=== PATIENT | female | born 1960 | race Caucasian/White ===

== ENCOUNTER 2022-03-19 13:51 | Emergency (ER) | payer OTHER, MEDICARE, SELFPAY ==
[2022-03-19 14:15] VITALS: BP 154/75; BP 154/78; PULSE 54; PULSE 84; RESP 16; TEMP 36.7; O2SAT 97; O2SAT 99; BMI 28.3
--- NOTE | 2022-03-19 14:22 | PC.NURSE ---
Pt comes in via EMS from [facility] for no PO intake x 4 days per facility. Pt is A&Ox4, denies any pain, states she hasn't eaten or drank anything because she thinks she ingested a parasite. Pt also states her needs to stay away from her because he is trying to kill her. Pt appears to be paranoid and delusional at this time. Section 12 per [facility], sitter in place. Call leavitt within reach, awaiting MD newell at this time. Will continue to monitor.
--- NOTE | 2022-03-19 14:37 | ED.GENADULT ---
HPI - General Adult General Chief complaint: General Medical Stated complaint: FTT Time Seen by Provider: 03/19/22 14:26 Source: EMS and other (Dr. Omar Olivier ) Mode of arrival: EMS Limitations: other (Delusional) History of Present Illness HPI narrative: Patient comes to the emergency room via EMS from [facility]. I received a phone call from Dr. Omar Olivier, internal medicine. For the past 4 days, patient has been refusing to eat or drink anything. Patient does not have a healthcare proxy and does not have a Jameson order. Here in emergency room, patient is refusing to eat or drink anything. Patient states that 4 days ago she ingested a parasite . Patient states that her name is not Aysha Dow, states that her name is Balwinder Esparza and is refusing fluids, food, labs. Related Data Allergies Allergy/AdvReac Type Severity Reaction Status Date / Time No Known Allergies Allergy Verified 03/19/22 16:16 Review of Systems Review of Systems: Yes Unobtainable due to mental condition [facility] Past Medical History Medical History (Updated 03/19/22 @ 16:35 by Ashly Morillo MD) Bipolar disorder Diabetes Hyperlipidemia Hypothyroidism Social History Social History Advance Directives: No Advance Directives Information Provided: No Physical Exam ED Vital Signs: Vital Signs - 24 hr 03/19/22 14:15 Temperature 98.0 F Pulse Rate 84 Respiratory Rate 16 Blood Pressure 154/75 H Pulse Oximetry 97 BMI result Body Mass Index 28.3 Const Other: Appearance: Alert. Oriented X1. No acute distress. Eyes: Pupils equal, round and reactive to light. ENT: Pharynx normal. Neck: Normal inspection. Neck supple. No lymph nodes noted. No crepitus CVS: Normal heart rate and rhythm. Pulses normal. Normal S1 and S2 Respiratory: No respiratory distress. Breath sounds normal. No Wheezing. No rales Abdomen: Soft and nontender. No rigidity. No distention. Skin: Skin warm and dry. Normal skin color. Normal skin turgor. Extremities: No lower extremity edema. No Lacerations. No Rash Neuro: Oriented X 3. No motor deficit. No sensory deficit. Moving all extremities. No slurred speech. CN 2 through 12 grossly intact Psych: calm, bizarre affect, stating her name is Balwinder Esparza, concerned that she ate a parasite Course Course Course Narrative: At this time, patient refuses to eat/drink or ingest any medication. Patient is not allowing us to obtain labs, is refusing IV fluids. As mentioned above, patient does not have a [facility] order for a healthcare proxy. According to the staff at the facility, they are working on obtaining a James[place] order and healthcare proxy. In the meantime, we cannot force the patient to eat, drink, obtain labs. We will obtain add care team consult, likely patient will need also [facility] psych consult Physician of sedation started at 15:30 (late entry on the system) Discharge Plan Discharge Clinical Impression: Bipolar disorder, Delusional ideas Patient Disposition: Still a Patient
--- NOTE | 2022-03-19 15:44 | PC.NURSE ---
Called [facility], spoke to Umu regarding patient. Asked if pt has a HCP, she said she doesn't and they are attempting to get this organized and are waiting for a court date. made aware, call dagmar within reach. Will continue to monitor.
--- NOTE | 2022-03-19 18:30 | MHC.CARE ---
Late entry: Pt was transferred from [facility] inpt psychiatric unit for medical evaluation and clearance s/p not eating or drinking for 4 days. Pt is acutely delusional and disorganized and per the shore working supervisor at [facility] the facility petitioned the court for a civil commitment today. Pt's legal status is a Section 7 and pt will need to return to [facility] once she is medically cleared in the ED. This information was relayed to ED physician and nursing.
--- NOTE | 2022-03-19 18:38 | ECG_ITS ---
Test Reason : medical clearance Blood Pressure : / mmHG Vent. Rate : 064 BPM Atrial Rate : 064 BPM P-R Int : 164 ms QRS Dur : 146 ms QT Int : 464 ms P-R-T Axes : 040 -14 088 degrees QTc Int : 478 ms Normal sinus rhythm Possible Left atrial enlargement Left bundle branch block Abnormal ECG No previous ECGs available Referred By: Ashly Morillo Electronically Signed By:JONO RODRÍGUEZ MD
[2022-03-19 19:43] LABS: Basophils Absolute Auto 0.1 X10*3/uL (0.0-0.2); Basophils Percent Auto 0.7 % (0-2); Eosinophils Absolute Auto 0.2 X10*3/uL (0.0-0.4); Eosinophils Percent Auto 2.1 % (0-4); Hematocrit 48.2 % (37.0-47.0); Hemoglobin 16.7 g/dl (12.0-16.0); Imm Gran Abs Auto 0.03 X10*3/uL (0.00-0.03); Imm Gran Pct Auto 0.3 % (0.0-0.4); Lymphocytes Absolute Auto 2.2 X10*3/uL (1.2-4.9); Lymphocytes Percent Auto 22.4 % (20-40); MANUAL DIFF FLAG SCAN; Mean Corpuscular HGB Conc 34.6 g/dl (31.0-35.0); Mean Corpuscular Hemoglobin 30.9 pg (27.0-33.0); Mean Corpuscular Volume 89.1 fL (80.0-98.0); Monocytes Absolute Auto 0.8 X10*3/uL (0.1-1.2); Monocytes Percent Auto 8.2 % (2-11); Neutrophils Absolute Auto 6.5 x10*3/uL (2.0-8.3); Neutrophils Percent Auto 66.3 % (45-73); PLT ABN DIST 1; Red Blood Count 5.41 X10*6/uL (4.20-5.50); Red Cell Distribution Width 12.2 % (11.0-16.0); SCAN SMEAR FLAG 1
[2022-03-19 19:50] LABS: Ethanol < 10 mg/dL
[2022-03-19 19:56] LABS: Alanine Aminotransferase 33 U/L (0-31); Albumin Level 4.5 g/dL (3.5-5.0); Alkaline Phosphatase 100 U/L (39-117); Anion Gap 16 (12-20); Aspartate Amino Transferase 29 U/L (5-31); Bilirubin Direct 0.5 mg/dL (0.0-0.5); Bilirubin Total 1.4 mg/dL (0.0-1.0); Blood Urea Nitrogen 32 mg/dL (9-16); COVID-19 Test Negative (Negative); Calcium 9.9 mg/dL (8.4-10.2); Carbon Dioxide 23 mmol/L (22-29); Chloride 105 mmol/L (96-108); Creatinine Clr Calc Pharmacy 84.4; Estimated Glomerular Filt Rate > 60; Glucose Random 80 mg/dL (60-115); IDNOW Serial# 16C4AD1C; Potassium 4.2 mmol/L (3.3-5.1); Sodium 140 mmol/L (135-145); Total Protein 7.2 g/dL (6.5-8.0)
[2022-03-19 20:12] LABS: Platelet Count 150 X10*3/uL (160-400); White Blood Count 9.9 X10*3/uL (4.8-10.8)
[2022-03-19 20:13] LABS: SLIDE REVIEW VERIFIED
[2022-03-19 20:17] LABS: Appearance Urine HAZY; Color Urine YELLOW; Glucose Urine UA NEG (NEG); Leukocyte Esterase Urine 2+ (NEG); Nitrite Urine NEG (NEG); Specific Gravity - Urine 1.025 (1.005-1.025); UACC Culture Trigger YES; Urine Blood 3+ (NEG); Urine Ketones 40 MG/DL (NEG); Urine Protein 1+ MG/DL (NEG-TRACE)
[2022-03-19 20:26] LABS: Mucus Urine 1+ /LPF; Squamous Epithelial Cell Urine 2+ /LPF
[2022-03-19 20:27] LABS: Bacteria Urine 1+ /LPF
[2022-03-19 20:28] LABS: Amorphous Sediment Urine TRACE /LPF
[2022-03-19 20:32] LABS: Amphetamine Screen Urine Not Detected (Not Detect); Barbiturates, Urine Not Detected (Not Detect); Benzodiazepines Screen Urine Not Detected (Not Detect); Cannabinoid Screen Urine Not Detected (Not Detect); Cocaine Screen Urine Not Detected (Not Detect); Fentanyl, urine Not Detected (Not Detect); Opiate Screen Urine Not Detected (Not Detect); Phencyclidine Screen Urine Not Detected (Not Detect)
[2022-03-19] MEDS: 0.9 % Sodium Chloride 1,000 ML 999 ML IV ×2 (21:45→23:42)
--- NOTE | 2022-03-20 01:22 | PC.NURSE ---
Patient administered two bags of NS each 1000 ml, patient required constant redirection to keep IV line following, was on 1:1 for observation, Vinh called at [phone], spoke with Herbie PETTY, gave report, they are expecting her back tomorrow, will continue to monitor.
[2022-03-20 02:01] VITALS: RESP 15
[2022-03-20 04:15] VITALS: BP 161/78; PULSE 73; RESP 15; O2SAT 99
--- NOTE | 2022-03-20 06:41 | PC.NURSE ---
Patient slept intermittently, behavior exit seeking and restless at time requiring constant redirection, though content paranoid, spoke with Herbie PETTY at [address], patient ETA at [facility] is 0830 am, transfer paper with Ed receptionist secretary, patient has borderline UTI but no order from provider, VSS, will continue to monitor
--- NOTE | 2022-03-20 07:12 | PC.NURSE ---
patient appears to remain at rest at present, visible in milieu, exit seeking consistently, mildly confused asking for shoes and to dc patient appears in no distress
== END 2022-03-20 09:17 ==
PROVIDERS: Emergency Medicine; Internal Medicine; Emergency Provider Emergency Medicine
DX: F31.9 Bipolar disorder, unspecified (principal); R62.7 Adult failure to thrive; F22 Delusional disorders; Z20.822 Contact with and (suspected) exposure to COVID-19; Z79.899 Other long term (current) drug therapy
CPT/HCPCS: 36415; 80048; 80076; 80307; 81001; 82077; 85025; 87086; 87635; 93005; 96360; 96361; 99284